=== PATIENT | male | born 1960 | race Caucasian/White ===

== ENCOUNTER → 2016-12-28 | Outpatient (CLI) | payer MEDICARE ==
[~2016-12-28] MED LIST: ALBUTEROL0.09 MG/A2 INH; ALDACTONE25 MG PO; ASPI-COR81 M1 PO; ATIVAN1 MG PO; BLOOD PRESSURE MED; COMBIVENT1 AR1 IH; D-1000 185 MG-11 TAB PO; GUAIFENESIN600 MG PO; KLOR-CON M2020 ME1 PO; LASIX20 MG PO; LEVAQUIN500 M2 PO; LEVAQUIN750 M1 PO; LIPITOR80 MG PO; LISINOPRIL10 M1 PO; LOPRESSOR25 MG PO; LOPRESSOR50 M1 PO; LORAZEPAM0.5 MG PO; NATURE'S BLEND F1 MG PO; NORCO 325 MG-101 TAB PO; OXYGEN NAS; PLAVIX75 M1 PO; PREDNICOT10 MG PO; PREDNISONE10 MG PO; PROAIR HFA8.5 GM INH; TESSALON PERLE200 MG PO
== END | disposition home or self-care (01) ==
LOC: CP 09:49
DX: J43.9 Emphysema, unspecified (principal)

== ENCOUNTER 2017-12-20 23:55 | Inpatient (IN) | payer MEDICARE ==
[~2017-12-20] VITALS: Ht 172.7 cm; Wt 64.9 kg
--- NOTE | ~2017-12-20 | PR ---
[place], [place] PROGRESS NOTE NAME: TING BARRON JR UNIT #: [id number] ROOM: 520 DOCTOR: YU RODRIGUEZ MD BIRTHDATE: [birth year] DOS: 12/23/2017 PULMONARY PROGRESS NOTE SUBJECTIVE: The patient was transferred to a telemetry floor at this time. He has been noted comfortable at this time, sitting on the side of the bed. He stated the coughing has been noted loose and nonproductive. He has not been noted any symptoms of chest pain. He denies symptoms of chest pain. Shortness of breath has been improving. He denies any pain of the lower extremities. OBJECTIVE: VITAL SIGNS: For the patient's temperature recorded shows a normal temperature, respiratory 20, heart rate of 89, blood pressure 156/86. Pulse oxygen saturation of the patient noted on 2 liters nasal cannula 98% saturation. HEENT: Examination shows head was atraumatic. Eyes nonicterus. NECK: Supple. CARDIOVASCULAR: S1, S2 audible. LUNGS: The patient was noted with moderate decreased breath sounds in the lung with [id number] expiratory wheezing, improvement in air entry note from previous examination. ABDOMEN: Soft, nontender. Bowel sounds present. EXTREMITIES: Without acute edema. LABORATORY DATA: Sodium 131. Normal BUN and creatinine. CBC: Normal WBC count and hemoglobin 12.1. IMPRESSION: 1. The patient with emphysema, which had noted in the basilar area with a bullous formation. 2. Liver cirrhosis. 3. Resolving acute respiratory failure progressively. PLAN OF TREATMENT: Continuation of the bronchodilators and oxygen supplementation. Dose of Solu-Medrol will be changed to 40 mg b.i.d. dosing because of improvement in the respiratory symptom continued. Monitor respiratory status closely. [place], [place] PROGRESS NOTE NAME: TING BARRON JR UNIT #: [id number] ROOM: 520 DOCTOR: YU RODRIGUEZ MD BIRTHDATE: [birth year] YU LINDSAY MD CM:PNTRANS [id number] YU SCHNEIDER MD 12/23/17 1215 interface
--- NOTE | ~2017-12-20 | PR ---
[place], [place] PROGRESS NOTE NAME: TING BARRON JR UNIT #: [id number] ROOM: 520 DOCTOR: SUDARSHAN FORDE,ANGELO BIRTHDATE: [birth year] DOS: 12/24/2017 REASON FOR VISIT: The patient with shortness of breath and coronary artery disease, elevated troponin. HISTORY OF PRESENT ILLNESS: The patient denies any chest pain or palpitations. His breathing is better. He is anticipating going home. Denies any cough or hemoptysis. No fever and chills. He is on oxygen by nasal cannula. REVIEW OF SYSTEMS: Review of the 8 systems negative except as mentioned. RHYTHM STRIPS: The patient is in sinus rhythm. PHYSICAL EXAMINATION: VITAL SIGNS: Blood pressure 131/61, pulse 86, respirations 20. Weight 64.8 kilos. GENERAL: Alert, comfortable, in no acute distress. HEENT: Pupils are round and equal, no jaundice. NECK: Supple, no distended neck veins. LUNGS: Clear to auscultation bilaterally. LUNGS: A few scattered rhonchi, but good air entry bilaterally. HEART: Regular rhythm, no S3. Grade 1/6 systolic murmur. ABDOMEN: Bowel sounds normal. EXTREMITIES: Showed no edema. Distal pulses palpable. SKIN: Warm and dry. No cyanosis, no clubbing. RECTAL: Deferred. MEDICATIONS AND LABORATORIES: Lab studies reviewed. IMPRESSION: 1. Borderline elevation of troponin. 2. Chronic obstructive pulmonary disease exacerbation. 3. Abnormal echo with some anteroapical wall motion abnormality. 4. History of coronary artery disease with a totally occluded right coronary artery. RECOMMENDATIONS: 1. Continue current medications. He is chest pain free and the blood pressure and heart rates are stable. 2. I discussed with the patient regarding Lexiscan stress test on Tuesday due to his abnormal troponin and some wall motion abnormality and a 2D echo has a history of coronary artery disease. 3. He would like to go home and he stated that "Dr. Prieto said I can go home and come for outpatient testing." 4. I will see him tomorrow and will decide about the stress test. [place], [place] PROGRESS NOTE NAME: BEATRICE VARGASTING Ferrer UNIT #: [id number] ROOM: 520 DOCTOR: ANGELO HEATON MD BIRTHDATE: [birth year] ANGELO HEATON MD CM:PNTRANS [id number] ANGELO HEATON MD 12/24/17 2258 interface
--- NOTE | ~2017-12-20 | PR ---
[place], [place] PROGRESS NOTE NAME: TING BARRON JR [facility] #: [id number] UNIT #: [id number] ROOM: 520 DOCTOR: SUDARSHAN FORDEANGELO BIRTHDATE: [birth year] DOS: 12/25/2017 CARDIOLOGY FOLLOWUP REASON FOR VISIT: Elevated troponin and coronary artery disease. SUBJECTIVE: The patient is feeling better. Denies any chest pain. His breathing is much better. No palpitation, no dizziness, no edema, no orthopnea. He wanted to go home today. REVIEW OF SYSTEMS: Review of the 8 systems negative except as mentioned above. RHYTHM STRIPS: The patient is in sinus rhythm. PHYSICAL EXAMINATION: VITAL SIGNS: Blood pressure 146/63, pulse 79, respiratory rate is 18. GENERAL: Alert, comfortable, in no acute distress. HEENT: Pupils are round and equal. No jaundice. NECK: Supple. No distended neck veins. No carotid bruit. CHEST: Symmetrical, nontender. LUNGS: Few scattered rhonchi. Good air entry bilaterally. HEART: Regular rhythm, no S3. Grade 1/6 systolic murmur. ABDOMEN: Benign, nontender. Bowel sounds normal. EXTREMITIES: Showed no edema. Distal pulses palpable. SKIN: Warm and dry. No cyanosis, no clubbing. NEUROLOGIC: The patient is alert and oriented. No focal neurologic deficit. RECTAL: Deferred. MEDICATIONS AND LABORATORIES: Reviewed. IMPRESSION: 1. Chronic obstructive pulmonary disease exacerbation. 2. Borderline elevation of troponin, type 2 non-ST elevation myocardial infarction. 3. Coronary artery disease. Cardiac catheterization in September 2016 showing totally occluded right coronary artery. 4. Abnormal echo with some wall motion abnormality. 5. Mild left ventricular dysfunction with ejection fraction 45%-50%. 6. Hypertension. 7. Valvular heart disease. RECOMMENDATIONS: 1. Continue current medication. 2. The patient would like to go home today and wanted to come back as outpatient for his Lexiscan stress test. 3. Chest pain free and blood pressure and heart rate are stable. 4. Continue his Plavix, beta blockers, ROSIBEL inhibitors and statins. 5. We will schedule him for outpatient Lexiscan stress test next week. 6. We will follow up with Dr. Prieto after his stress test. 7. His family is at bedside at the time of my examination. [place], [place] PROGRESS NOTE NAME: TING BARRON JR UNIT #: [id number] ROOM: [facility] [place] DOCTOR: SUDARSHAN FORDE,ANGELO BIRTHDATE: [birth year] 8. I prefer to keep him in the hospital and do stress test on Tuesday, but would like to go home today and come back as outpatient stress test. ANGELO HEATON MD CM:PNTRANS [id number] ANGELO HEATON MD 12/26/17 0039 interface
--- NOTE | ~2017-12-20 | PR ---
[place], [place] PROGRESS NOTE NAME: TING BARRON JR [facility] #: [id number] UNIT #: [id number] ROOM: 520 DOCTOR: NEFTALI SCHNEIDER MD,YU BIRTHDATE: [birth year] DOS: 12/25/2017 SUBJECTIVE: The patient has been noted comfortable at this time without any acute distress, resting comfortably at the present time. She has not been noted with symptoms of chest pain and symptoms of nausea, vomiting, and coughing has been improved. OBJECTIVE: VITAL SIGNS: For the patient which has been recorded showed normal temperature, respiratory rate 18, heart rate 79, blood pressure 146/73. The pulse oxygen saturation on 2 liters nasal cannula 95% saturation at rest. HEENT: No acute change. NECK: Supple. CARDIOVASCULAR: S1, S2 audible in the lung were noted clear. ABDOMEN: Soft and nontender. Bowel sounds present. EXTREMITIES: Without any acute edema. IMPRESSION: Progressive and gradual progressive resolution of acute hypoxic respiratory failure for the patient with exacerbation of chronic obstructive pulmonary disease was noted. Improving respiratory status of the patient. PLAN OF TREATMENT: Assess the patient for 6-minute walk test for the patient was completed. He will be discharged home on oral tapering dose of prednisone, bronchodilators, medication such as Dulera to be used as an outpatient and the home oxygen for outpatient followup to be established post-discharge in the next couple of weeks. YU LINDSAY MD CM:PNTRANS [phone] YU SCHNEIDER MD 12/25/172038 interface
--- NOTE | ~2017-12-20 | PR ---
[place], [place] PROGRESS NOTE [id number] UNIT #: [id number] ROOM: 520 DOCTOR: MARIA DEL CARMEN DONATO MD BIRTHDATE: [birth year] DOS: 12/24/2017 SUBJECTIVE: The patient was seen and examined. He is awake, alert. He tells me he feels well and would like to go home. He is on nasal cannula. Denies dysuria or hematuria. Denies nausea or vomiting. PHYSICAL EXAMINATION: VITAL SIGNS: Temperature 97.9, pulse 86, respiration 20, blood pressure 131/61. NECK: Shows no JVD. LUNGS: Diminished breath sounds. No wheeze. HEART: Normal S1, S2. No rub. ABDOMEN: Soft, nontender. There is no organomegaly. EXTREMITIES: Had no edema. LABORATORY DATA: Sodium 132, potassium 4.2, CO2 of 29, calcium 8.0, BUN 17, creatinine 0.85. Hemoglobin 12.5. IMPRESSION AND PLAN: 1. Hyponatremia. This seems to be stable and improving. Would continue to monitor labs while in the hospital. Avoid thiazide diuretics. Increase protein intake. Can use and resume loop diuretics as felt needed. 2. History of alcohol abuse. Monitor for delirium tremens. 3. Apparent non-ST elevation myocardial infarction. Continue medications. Cardiology is following the patient. MARIA DEL CARMEN DONATO MD CM:PNTRANS [id number] MARIA DEL CARMEN DONATO MD 12/24/17 1500 interface
--- NOTE | ~2017-12-20 | PR ---
[place], [place] PROGRESS NOTE NAME: TING BARRON JR [facility] #: [id number] UNIT #: [id number] ROOM: [facility] DOCTOR: NEFTALI SCHNEIDER MD,YU BIRTHDATE: [birth year] DOS: 12/22/2017 SUBJECTIVE: The patient was still noted coughing. The patient with small amount of sputum expectoration. Shortness of breath has been noted partially decreased from yesterday. No symptoms of hemoptysis and symptoms of nausea, vomiting, diarrhea, abdominal pain, ____ hematemesis, melena. General weakness and fatigue for the patient was still reported. The remaining systems were reviewed, they were noted all negative. OBJECTIVE: VITAL SIGNS: Normal temperature, respiratory rate 22, heart rate 94, blood pressure 151/79 this morning. The pulse oxygen saturation for the patient noted 3 liters 99% saturation. HEENT: Examination shows head was atraumatic. Eyes nonicterus. NECK: Supple. CARDIOVASCULAR: S1, S2 is audible. LUNGS: The patient was noted without any crackles. Expiratory wheezing noted in the lungs bilaterally. ABDOMEN: Flat, soft, and nontender. EXTREMITIES: Without any edema. MUSCULOSKELETAL: Without any deformities. SKIN: Noted without any lesions or rashes. CENTRAL NERVOUS SYSTEM: Cranial nerves 2-12 intact. LABORATORY DATA: CT scan of the chest, which was done for the patient yesterday was personally reviewed, shows evidence of panlobular emphysema of the lung noted throughout the lungs, but much more predominant in the upper two-thirds of the lungs. There were no abnormal pulmonary nodules. There was no pulmonary infiltration noted. Limited exam of the patient's mediastinal structure because of the lack of the IV contrast. However, there was no cross lymphadenopathy was suspected. IMPRESSION: 1. The patient has severe advanced panlobular emphysema of the patient noted with acute exacerbation of chronic obstructive pulmonary disease. 2. The patient with history of nicotine dependence as well. 3. History of liver cirrhosis as well. 4. The patient with leukopenia. 5. Peripheral vascular disease. 6. Rule out alpha 1 antitrypsin deficiency. PLAN OF MANAGEMENT: Continuation of the current therapy plan of management with BiPAP, oxygen supplementation, nicotine replacement patches, and current dose of corticosteroids. Bronchodilators. The patient is also noted atrial fibrillation, currently noted therapeutic anticoagulation with Lovenox. Alpha 1 antitrypsin deficiency to be excluded as an outpatient. Assessment of the patient because of current panlobular emphysema and cirrhosis of the liver. Absolute abstinence of tobacco use for the patient will be recommended. [place], [place] PROGRESS NOTE NAME: TING BARRON JR UNIT #: [id number] ROOM: [facility] DOCTOR: NEFTALI SCHNEIDER MD,YU BIRTHDATE: [birth year] YU LINDSAY MD CM:SIMEON 1155 1337 YU SCHNEIDER MD 12/22/17 1336 interface
--- NOTE | ~2017-12-20 | PR ---
[place], [place] PROGRESS NOTE NAME: TING BARRON JR [facility] #: [id number] UNIT #: [id number] ROOM: 520 DOCTOR: NEFTALI SCHNEIDER MD,YU BIRTHDATE: [birth year] DOS: 12/24/2017 SUBJECTIVE: He has been noted continued reduction of the respiratory symptom, reduction in the cough and sputum expectoration, shortness of breath, wheezing and in general feeling better. Denies symptoms of chest pain or hemoptysis, using oxygen supplementation nasal cannula. OBJECTIVE: VITAL SIGNS: Normal temperature, respiratory rate 18, heart rate 74, blood pressure 129/85, pulse oxygen saturation on room air 92% saturation with BiPAP as 95% saturation. HEENT: Showed no acute change. NECK: Supple. CARDIOVASCULAR: S1, S2 audible. LUNGS: Noted moderate decreased breath sounds with mild expiratory wheezing. No crackles. ABDOMEN: Soft, nontender. EXTREMITIES: Without acute edema. LABORATORY DATA: CBC: Normal WBC count and platelet count, hemoglobin of 12.5. BMP: Normal BUN and creatinine. Sodium 132. IMPRESSION: Resolving acute exacerbation of chronic obstructive pulmonary disease, acute tracheobronchitis, and respiratory failure progressively and gradually. PLAN OF TREATMENT: Ambulation was encouraged with the use of the oxygen. Possible discharge home could be considered for the morning. YU LINDSAY MD CM:PNTRANS [phone] YU SCHNEIDER MD 12/24/17 1439 interface
--- NOTE | ~2017-12-20 | CON ---
[place], [place] REPORT OF CONSULTATION NAME: TING BARRON JR [facility] #: [id number] UNIT #: [id number] ROOM: [facility] DOCTOR: YU RODRIGUEZ MD BIRTHDATE: [birth year] DOS: 12/21/2017 REASON FOR CONSULTATION: To assess the patient for ongoing acute respiratory symptom. HISTORY OF PRESENT ILLNESS: This is a 57-year-old white male patient who has been noted with symptoms of increasing shortness of breath over a week, but the symptoms worsened significantly last night. The patient came into the Emergency Room, where he had been admitted and currently treated in Intensive Care Unit for his management of tachypnea with respiratory failure. The patient was brought to the hospital by the EMS. The patient was noted to have severe hypoxia and tachypnea. He was started on BiPAP en route. The oxygen supplementation the patient was given. Pulse oxygen saturation noted in the 90s. He had been currently admitted to Intensive Care Unit for further medical management. Shortness of breath was still noted mildly at rest with the patient, but decreased overall intensity as per the patient. He does have symptoms of coughing, which was described to be nonproductive. Denies symptoms of chest tightness and congestion. The patient denies any symptoms of wheezing. He denies any symptoms of any sputum expectoration. The coughing has been described mostly nonproductive. Denies symptoms of postnasal drainage. REVIEW OF SYSTEMS: CONSTITUTIONAL: Fatigue and tiredness reported without symptoms of fever or chills. EYES: Denies any burning, redness, or tenderness. EARS, NOSE, THROAT SYMPTOMS: Denies sore throat, hoarseness, otalgia, postnasal drainage or epistaxis. CARDIOVASCULAR: Denies anginal pain, edema, pain in the lower extremities. GASTROINTESTINAL: No dysphagia, nausea, vomiting, diarrhea, abdominal pain, hematemesis, melena, or hematochezia. SKIN: Denies abnormal lesions or rashes. MUSCULOSKELETAL: The patient was noted without any acute deformities. SKIN: Denies any pain in the joints. CENTRAL NERVOUS SYSTEM: General weakness. Denies symptoms of dizziness, headache, diplopia, syncopal episode, tingling sensation of the extremities. Remaining systems were reviewed of the patient, they were noted all negative. PAST MEDICAL HISTORY: Noted for this patient are: 1. Past acute respiratory failure requiring intubation and mechanical ventilation in 2016. 2. Centrilobular emphysema. 3. Cirrhosis of the liver. 4. Intervertebral disk disease. 5. Coronary artery disease. 6. Peripheral vascular disease. 7. Vitamin D deficiency. 8. Anxiety disorder. 9. Hypercholesterolemia. 10. Congestive heart failure, systolic and diastolic, combined. [place], [place] REPORT OF CONSULTATION NAME: TING BARRON JR UNIT #: [id number] ROOM: [facility] DOCTOR: YU RODRIGUEZ MD BIRTHDATE: [birth year] PAST SURGICAL HISTORY: 1. Intubation on mechanical ventilation. 2. Peripheral artery intervention. The patient with angioplasty of left lower leg. 3. History of past thoracentesis. SOCIAL HISTORY: The patient stated that he is , has one child, lives at home. Tobacco use was noted chronic with the patient since early teens and continued to smoke a pack of cigarettes per day. Denies history of alcohol use. Denies any alcohol or illicit drug use. FAMILY HISTORY: The patient's father from complication of stroke and also noted history of COPD. Mother is living, 70 years old without any known medical illnesses. HOME MEDICATIONS: Listed as use of ProAir HFA inhaler, aspirin, Lipitor, vitamin D, Plavix, folic acid, Lasix, Mucinex, recent prescription of Levaquin, lisinopril, lorazepam, metoprolol, potassium chloride, and tapering prednisone. DRUG ALLERGY HISTORY: The patient reported no known drug allergies. PHYSICAL EXAMINATION: GENERAL: A 57-year-old white male who has been currently sitting on his bed. The patient without any severe distress; however, mild tachypnea noted at rest. Height of 5 feet 8 inches, weight of 143 pounds, BMI 21.7. VITAL SIGNS: Temperature 100.1 degree Fahrenheit to normal temperature, respiratory rate 14-16, heart rate of 112-104, sinus tachycardia, blood pressure 104/69-142/80. Pulse oxygen saturation of the patient recorded on 4 liter nasal cannula this morning as 96% and BiPAP earlier 50% with 100% saturation of oxygen. HEENT: Examination shows head was atraumatic. Eyes nonicterus. NECK: Supple. CARDIOVASCULAR: S1, S2 is audible. LUNGS: The patient was noted without any crackles at this time. Severe reduced breath sound, diffuse expiratory wheezing. Air entry was noted moderately decreased. ABDOMEN: Soft, nontender. Bowel sounds present. EXTREMITIES: The patient noted without any acute edema, clubbing, or cyanosis. MUSCULOSKELETAL: No acute deformities. SKIN: No lesions or rashes. CENTRAL NERVOUS SYSTEM: The patient's cranial nerves 2-12 intact. No focal deficit. LABORATORY DATA: The patient's CBC were done early this morning. The patient on admission has normal CBC. Lactic acid 3.4, follow up 1.0 today. The PT and PTT this morning normal. CMP this morning, glucose 122, potassium 5.5, sodium 121. Arterial blood gas this morning, pH of 7.40, pCO2 of 32, pO2 of 138 on 40% oxygen. CMP this morning, glucose 153, BUN normal, creatinine was normal. Potassium 5.4, sodium of 123. CBC this morning repeated again, WBC count 4.3, [place], [place] REPORT OF CONSULTATION NAME: TING BARRON JR UNIT #: [id number] ROOM: [facility] DOCTOR: NEFTALI SCHNEIDER MD,[facility] BIRTHDATE: [birth year] hemoglobin 13.4, hematocrit of 39.2, platelet count was normal. Ultrasound of the liver for the patient was completed this morning. The liver cirrhosis the patient noted as previously identified. The gallbladder was not visualized. Troponin, the first set 0.274, the second set is 0.388. One view chest x-ray that was done at this admission for this patient was reviewed from the Emergency Room, PACS images. Change of advanced emphysema for the patient were visible with a small basilar area of atelectasis or infiltration cannot be excluded with associated small pleural effusions. IMPRESSION: 1. The patient has been currently admitted to the hospital noted with severe acute exacerbation of chronic obstructive pulmonary disease with history of chronic hypoxic respiratory failure, currently noted with respiratory insufficiency because of the current acute exacerbation. 2. Leukopenia for the patient related to the liver cirrhosis infections and others to be explored. 3. Severe hyponatremia, etiology undetermined with hyperkalemia. Rule out adrenal insufficiency. 4. The patient with history of chronic nicotine dependence as well. 5. Past history of intubation, mechanical ventilation. 6. Possibility of protein-calorie malnutrition as well. 7. History of peripheral vascular disease. PLAN OF MANAGEMENT: Continue the BiPAP of the patient with respiratory distress. Bronchodilator will be given every 4 hours. Continue Solu-Medrol current dose 40 mg 8 hours. Levaquin will be continued. The basilar area of atelectasis or infiltration at this time with possible pneumonia will be treated with antibiotic. Ordered the sputum for Gram stain, culture, and BiPAP, the patient could use that previously as ordered intermittently for any respiratory distress, especially at nighttime. The other time, use the oxygen supplementation, maintain saturation of oxygen 92% or greater. Abstinence from tobacco use was recommended. Nicotine replacement patches. Ordering the prealbumin level as well. Also ordered the sputum for Gram stain and culture as well. Addition of the Mucinex 1200 mg b.i.d. for the patient as well. PA lateral chest x-ray for the patient will be done in the morning for this patient to assess the basilar abnormalities. The patient has already been assessed with Nephrology Service for the assessment and management of the hypokalemia. Other plan of therapy, usual medical management, other therapy, plan of care, respiratory viral panel will be ordered. [place], [place] REPORT OF CONSULTATION NAME: BEATRICE VARGASTING UNIT #: [id number] ROOM: [facility] DOCTOR: YU RODRIGUEZ MD BIRTHDATE: [birth year] YU LINDSAY MD CM:CONSTR:REPORT OF CONSULTATION 1309 12/22/17 0124 interface
--- NOTE | ~2017-12-20 | PR ---
[place], [place] PROGRESS NOTE NAME: TING BARRON JR [facility] #: [id number] UNIT #: [id number] ROOM: 520 DOCTOR: MARIA DEL CARMEN DONATO MD BIRTHDATE: [birth year] DOS: 12/25/2017 SUBJECTIVE: The patient was seen and examined. He is awake and alert. He states he is feeling better. Denies nausea, vomiting, fevers or chills. He tells me he is going home. PHYSICAL EXAMINATION: VITAL SIGNS: Temperature 98.4, pulse 87, respiratory rate 20, blood pressure ____. HEENT: Shows no JVD. LUNGS: Diminished breath sounds. HEART: Normal S1, S2. No rub, thrill or gallop. ABDOMEN: Soft, nontender. There is no organomegaly. EXTREMITIES: Had trace edema. SKIN: Showed no rash. LABORATORY DATA: From December 24: Sodium 132, potassium 4.2, BUN 17, creatinine 0.85. ASSESSMENT AND PLAN: 1. Hyponatremia. This is stable and overall improving. Continue to monitor labs while in the hospital. Avoid thiazide diuretics. Increase protein intake. Resume loop diuretics. 2. History of alcohol abuse. Monitor for delirium tremens. 3. Apparent non-ST elevation myocardial infarction. Cardiology is managing. Continue medications. 4. From renal standpoint, the patient is acceptable for discharge. He should have labs checked as an outpatient to reevaluate his sodium. Thank you for this consultation. We will follow with you. MARIA DEL CARMEN DONATO MD CM:PNTRANS 1357 [id number] MARIA DEL CARMEN DONATO MD 12/25/17 1834 interface
[2017-12-21] VITALS (9 sets, daily range): BP systolic 118–148; BP diastolic 64–94
[2017-12-21 00:38] LABS: BASO % 0.3 % (0.0-1.0); EOS # 0.1 10*3/uL (0.0-0.4); EOS % 0.7 % (1.0-4.0); HEMATOCRIT 42.5 % (42.0-52.0); HEMOGLOBIN 14.4 g/dl (14.0-18.0); LYMPH % 10.3 % (27.0-41.0); MEAN CELL VOLUME 95.1 fl (80.0-94.0); MEAN CORPUSCULAR HGB 32.2 pg (27.0-31.0); MEAN CORPUSCULAR HGB CONC 33.9 g/dl (33.0-37.0); MEAN PLATELET VOLUME 9.8 fl (9.6-12.3); MONO # 1.1 10*3/uL (0.1-1.0); MONO % 11.7 % (3.0-9.0); NEUT % 76.2 % (47.0-73.0); PLATELET COUNT AUTOMATED 146 10*3/uL (130-400); RED BLOOD COUNT 4.47 10*6/uL (4.50-5.90); RED CELL DISTRI WIDTH 12.6 % (0-14.5); WHITE BLOOD COUNT 9.2 10*3/uL (4.8-10.8)
[2017-12-21 00:49] LABS: ACT PARTIAL THROMBO TIME 24.7 SECONDS (20.8-31.5); INTERNATIONAL NORM RATIO 0.9 (2.0-3.5)
[2017-12-21 00:54] LABS: ALBUMIN 3.5 gm/dl (3.1-4.5); ALKALINE PHOSPHATASE 123 U/L (45-117); BUN 14 mg/dl (7-24); CHLORIDE 84 mmol/L (98-107); CREATININE 1.05 mg/dL (0.70-1.30); POTASSIUM 5.5 mmol/L (3.5-5.1); SGOT/AST 20 IU/L (3-35); SGPT/ALT 26 U/L (12-78); SODIUM 121 mmol/L (136-145); TOTAL PROTEIN 7.8 gm/dL (6.4-8.2); TROPONIN I < 0.015 ng/ml (<0.045)
[2017-12-21] MEDS ORDERED: ALDACTONE25 M1 PO (02:16)
[2017-12-21] MEDS ORDERED: SPIRIVA18 MCG PO (02:17)
[2017-12-21] MEDS ORDERED: SYMB160 INH (02:17)
[2017-12-21 07:34] LABS: HEMATOCRIT 39.2 % (42.0-52.0); HEMOGLOBIN 13.4 g/dl (14.0-18.0); MEAN CORPUSCULAR HGB CONC 34.2 g/dl (33.0-37.0)
[2017-12-21 07:50] LABS: ABG BASE EXCESS -3.3 mmol/L (-2.0-2.0); ABG HCO3 20.1 mmol/l (22-26); ARTERIAL BLOOD GAS PCO2 32.6 mmHg (35-45); ARTERIAL BLOOD GAS PH 7.406 (7.35-7.45)
[2017-12-21 07:53] LABS: ALKALINE PHOSPHATASE 101 U/L (45-117); BUN 13 mg/dl (7-24); CHLORIDE 89 mmol/L (98-107); CHOLESTEROL 161 mg/dL (<200); CREATININE 0.99 mg/dL (0.70-1.30); HDL CHOLESTEROL 55 mg/dl (40-60); LDL CHOLESTEROL 98 mg/dL (9-159); PHOSPHOROUS 2.9 mg/dL (2.5-4.9); POTASSIUM 5.4 mmol/L (3.5-5.1); SGOT/AST 15 IU/L (3-35); SGPT/ALT 22 U/L (12-78); SODIUM 123 mmol/L (136-145); TOTAL PROTEIN 6.6 gm/dL (6.4-8.2); TRIGLYCERIDES 38 mg/dl (<150); VLDL CHOLESTEROL 8 mg/dL (6-40)
[2017-12-21 08:05] LABS: FREE T4 1.02 ng/dl (0.76-1.46); THYROID STIM HORMONE (HS) 0.623 uIU/ml (0.358-4.75)
[2017-12-21 08:13] LABS: BASO % 0.2 % (0.0-1.0); LYMPH # 0.2 10*3/uL (1.3-4.4); LYMPH % 5.6 % (27.0-41.0); MEAN CELL VOLUME 95.1 fl (80.0-94.0); MEAN CORPUSCULAR HGB 32.5 pg (27.0-31.0); MONO # 0.1 10*3/uL (0.1-1.0); MONO % 2.6 % (3.0-9.0); NEUT # 3.9 10*3/uL (2.3-7.9); NEUT % 90.9 % (47.0-73.0); PLATELET COUNT AUTOMATED 131 10*3/uL (130-400); RED BLOOD COUNT 4.12 10*6/uL (4.50-5.90); RED CELL DISTRI WIDTH 12.7 % (0-14.5); WHITE BLOOD COUNT 4.3 10*3/uL (4.8-10.8)
[2017-12-21 08:14] LABS: PLATELET SUFFICIENCY NORMAL (NORMAL); TOTAL CELLS COUNTED 100 #CELLS
[2017-12-21 08:23] LABS: URINE CHLORIDE, RANDOM < 10 mmol/L
[2017-12-21 08:53] LABS: BILIRUBIN NEGATIVE (NEGATIVE); BLOOD TRACE-INTACT (NEGATIVE); CLARITY CLEAR (CLEAR); COLOR YELLOW (YELLOW); GLUCOSE NEGATIVE (NEGATIVE); KETONE TRACE (NEGATIVE); LEUKO ESTERASE NEGATIVE (NEGATIVE); NITRITE NEGATIVE (NEGATIVE); SPECIFIC GRAVITY <= 1.005 (1.005-1.030); UROBILINOGEN 0.2 E.U./dl (0.2-1.0)
[2017-12-21 09:06] LABS: BACTERIA TRACE; EPITHELIAL CELLS 0-2; WBC 0-2 wbc/hpf (0-5)
[2017-12-21 09:13] LABS: VITAMIN D, 25-HYDROXY 14.3 ng/mL (30-100)
[2017-12-21] MEDS ORDERED: POTASSIUM CHLO10 ME5 PO (09:33)
[2017-12-21] MEDS ORDERED: METOPROLOL SUCC50 M1 PO (09:35)
[2017-12-22] VITALS: BP 118/65
[2017-12-22 04:00] VITALS: BP 128/66
[2017-12-22 05:11] LABS: BASO % 0.1 % (0.0-1.0); EOS % 0.4 % (1.0-4.0); HEMATOCRIT 34.7 % (42.0-52.0); HEMOGLOBIN 11.9 g/dl (14.0-18.0); LYMPH # 0.5 10*3/uL (1.3-4.4); LYMPH % 6.6 % (27.0-41.0); MEAN CELL VOLUME 96.1 fl (80.0-94.0); MEAN CORPUSCULAR HGB CONC 34.3 g/dl (33.0-37.0); MEAN PLATELET VOLUME 9.9 fl (9.6-12.3); MONO # 0.4 10*3/uL (0.1-1.0); MONO % 4.6 % (3.0-9.0); NEUT % 87.1 % (47.0-73.0); PLATELET COUNT AUTOMATED 126 10*3/uL (130-400); RED BLOOD COUNT 3.61 10*6/uL (4.50-5.90); RED CELL DISTRI WIDTH 12.7 % (0-14.5); WHITE BLOOD COUNT 8.1 10*3/uL (4.8-10.8)
[2017-12-22 05:28] LABS: ALBUMIN 2.8 gm/dl (3.1-4.5); BUN 13 mg/dl (7-24)
[2017-12-22 05:36] LABS: CHLORIDE 97 mmol/L (98-107); POTASSIUM 4.6 mmol/L (3.5-5.1); SODIUM 131 mmol/L (136-145)
[2017-12-22 05:39] LABS: PHOSPHOROUS 2.9 mg/dL (2.5-4.9)
[2017-12-22 05:42] LABS: PREALBUMIN 15 mg/dl (20-40)
[2017-12-22 08:00] VITALS: BP 151/79
[2017-12-22 12:00] VITALS: BP 140/74
[2017-12-22 16:00] VITALS: BP 134/62
[2017-12-22 20:00] VITALS: BP 142/76
[2017-12-23] VITALS: BP 149/69
[2017-12-23 06:45] LABS: EOS % 0.4 % (1.0-4.0); HEMATOCRIT 36.3 % (42.0-52.0); HEMOGLOBIN 12.1 g/dl (14.0-18.0); LYMPH # 0.4 10*3/uL (1.3-4.4); LYMPH % 7.2 % (27.0-41.0); MEAN CELL VOLUME 97.8 fl (80.0-94.0); MEAN CORPUSCULAR HGB 32.6 pg (27.0-31.0); MEAN CORPUSCULAR HGB CONC 33.3 g/dl (33.0-37.0); MEAN PLATELET VOLUME 10.1 fl (9.6-12.3); MONO # 0.2 10*3/uL (0.1-1.0); MONO % 4.5 % (3.0-9.0); NEUT # 4.3 10*3/uL (2.3-7.9); NEUT % 87.3 % (47.0-73.0); PLATELET COUNT AUTOMATED 130 10*3/uL (130-400); RED BLOOD COUNT 3.71 10*6/uL (4.50-5.90); RED CELL DISTRI WIDTH 12.6 % (0-14.5); WHITE BLOOD COUNT 4.9 10*3/uL (4.8-10.8)
[2017-12-23 07:00] LABS: ALBUMIN 2.8 gm/dl (3.1-4.5); BUN 14 mg/dl (7-24); CHLORIDE 97 mmol/L (98-107); CREATININE 0.85 mg/dL (0.70-1.30); PHOSPHOROUS 3.6 mg/dL (2.5-4.9); POTASSIUM 4.4 mmol/L (3.5-5.1); SODIUM 131 mmol/L (136-145)
[2017-12-23 08:00] VITALS: BP 156/86
[2017-12-23 12:00] VITALS: BP 131/67
[2017-12-23 16:00] VITALS: BP 134/76
[2017-12-23 20:00] VITALS: BP 128/63
[2017-12-24] VITALS: BP 136/78
[2017-12-24 00:04] LABS: ADENOVIRUS Negative (Negative); INFLUENZA A Negative (Negative); INFLUENZA B Negative (Negative); METAPNEUMOVIRUS Negative (Negative); PARAINFLUENZA 1 Negative (Negative); PARAINFLUENZA 2 Negative (Negative); PARAINFLUENZA 3 Negative (Negative); RHINOVIRUS Negative (Negative); RSV A Negative (Negative); RSV B Negative (Negative)
[2017-12-24 06:56] LABS: EOS % 0.6 % (1.0-4.0); HEMOGLOBIN 12.5 g/dl (14.0-18.0); LYMPH # 0.5 10*3/uL (1.3-4.4); LYMPH % 10.7 % (27.0-41.0); MEAN CORPUSCULAR HGB 32.6 pg (27.0-31.0); MEAN CORPUSCULAR HGB CONC 32.9 g/dl (33.0-37.0); MEAN PLATELET VOLUME 9.9 fl (9.6-12.3); MONO # 0.4 10*3/uL (0.1-1.0); MONO % 8.5 % (3.0-9.0); NEUT % 79.8 % (47.0-73.0); PLATELET COUNT AUTOMATED 137 10*3/uL (130-400); RED BLOOD COUNT 3.84 10*6/uL (4.50-5.90); RED CELL DISTRI WIDTH 12.7 % (0-14.5)
[2017-12-24 07:04] LABS: BUN 17 mg/dl (7-24); CHLORIDE 98 mmol/L (98-107); CREATININE 0.85 mg/dL (0.70-1.30); POTASSIUM 4.2 mmol/L (3.5-5.1); SODIUM 132 mmol/L (136-145)
[2017-12-24 08:00] VITALS: BP 129/85
[2017-12-24 12:00] VITALS: BP 131/61
[2017-12-24 16:00] VITALS: BP 148/70
[2017-12-24 20:00] VITALS: BP 127/63
[2017-12-25] VITALS: BP 124/74
[2017-12-25 08:00] VITALS: BP 146/63
[2017-12-25 12:00] VITALS: BP 166/76
[2017-12-25 16:00] VITALS: BP 142/82
[2017-12-25] MEDS ORDERED: ATORVASTATIN CA80 M1 PO (16:26)
[2017-12-25] MEDS ORDERED: LEVAQUIN500 M2 PO (16:26)
[2017-12-25] MEDS ORDERED: MUCINEX ER600 MG PO (16:26)
[2017-12-25] MEDS ORDERED: PREDNISONE10 MG PO (16:27)
== END 2017-12-25 17:28 | disposition home or self-care (01) | DRG 871 ==
LOC: ED 23:55 → ICCU 12-21 01:11 → EDHOLD 12-21 01:11 → ICCU 12-21 01:15 → 5E 12-22 14:18
PROVIDERS: Family Medicine; Internal Medicine; Internal Medicine Critical Care Medicine; Internal Medicine Hospice and Palliative Medicine; Student in an Organized Health Care Education/Training Program
PROC: 5A09357 Assistance with Respiratory Ventilation, Less than 24 Consecutive Hours, Continuous Positive Airway Pressure (ICD-10-PCS; principal; 2017-12-21)
PROC: 5A09357 Assistance with Respiratory Ventilation, Less than 24 Consecutive Hours, Continuous Positive Airway Pressure (ICD-10-PCS; 2017-12-22)
PROC: 5A09357 Assistance with Respiratory Ventilation, Less than 24 Consecutive Hours, Continuous Positive Airway Pressure (ICD-10-PCS; 2017-12-23)
PROC: 5A09357 Assistance with Respiratory Ventilation, Less than 24 Consecutive Hours, Continuous Positive Airway Pressure (ICD-10-PCS; 2017-12-24)
DX: A41.9 Sepsis, unspecified organism (principal); J18.9 Pneumonia, unspecified organism; I21.A1 Myocardial infarction type 2; J96.21 Acute and chronic respiratory failure with hypoxia; E87.2 Acidosis; I50.42 Chronic combined systolic (congestive) and diastolic (congestive) heart failure; E87.8 Other disorders of electrolyte and fluid balance, not elsewhere classified; E87.1 Hypo-osmolality and hyponatremia; J44.1 Chronic obstructive pulmonary disease with (acute) exacerbation; J44.0 Chronic obstructive pulmonary disease with (acute) lower respiratory infection; I73.9 Peripheral vascular disease, unspecified; F10.10 Alcohol abuse, uncomplicated; E87.5 Hyperkalemia; E83.41 Hypermagnesemia; I25.10 Atherosclerotic heart disease of native coronary artery without angina pectoris; R65.20 Severe sepsis without septic shock; D53.9 Nutritional anemia, unspecified; R73.9 Hyperglycemia, unspecified; R74.8 Abnormal levels of other serum enzymes; R73.03 Prediabetes; E78.00 Pure hypercholesterolemia, unspecified; F41.1 Generalized anxiety disorder; F17.210 Nicotine dependence, cigarettes, uncomplicated; K70.30 Alcoholic cirrhosis of liver without ascites; J20.9 Acute bronchitis, unspecified; Z87.19 Personal history of other diseases of the digestive system; Z87.898 Personal history of other specified conditions; Z98.62 Peripheral vascular angioplasty status; Z99.81 Dependence on supplemental oxygen; Z79.899 Other long term (current) drug therapy; I25.2 Old myocardial infarction; Z82.3 Family history of stroke; Z83.6 Family history of other diseases of the respiratory system; Z71.6 Tobacco abuse counseling; Z79.82 Long term (current) use of aspirin

== ENCOUNTER → 2017-12-28 | Outpatient (CLI) | payer MEDICARE ==
[~2017-12-28] MED LIST changes: +ALDACTONE25 M1 PO; +ATORVASTATIN CA80 M1 PO; +METOPROLOL SUCC50 M1 PO; +MUCINEX ER600 MG PO; +POTASSIUM CHLO10 ME5 PO; +SPIRIVA18 MCG PO; +SYMB160 INH
--- NOTE | ~2017-12-28 | ST ---
[place], [place] EXERCISE STRESS TEST REPORT NAME: TING BARRON JR [facility] #: [id number] UNIT #: [id number] ROOM: DOCTOR: NADIA TRINIDAD MD BIRTHDATE: [birth year] DOS: 12/28/2017 INDICATIONS: Dyspnea, EKG abnormalities. PROCEDURE: The patient was given a rapid infusion of regadenoson 0.4 mg intravenously followed by a saline flush. He experienced a dramatic increase in his dyspnea, which lasted several seconds and then resolved. He did not have any associated chest pain. The resting electrocardiogram showed a symmetric T-wave inversions across the precordium. With the infusion, the heart rate increased naturally but no new ST or T-wave changes were seen and the patient did not experience chest pain. 40 seconds after the infusion of regadenoson, he was given radionuclide intravenously. IMPRESSION: 1. Well tolerated infusion of regadenoson. 2. Radionuclide administered. Please see the separate imaging reports for further details of the patient's myocardial stress test results. NADIA TRINIDAD MD CM:STRESS:EXERCISE STRESS TEST REPORT [id number] NADIA TRINIDAD MD
== END | disposition home or self-care (01) ==
LOC: CARD 12-27 09:00
DX: R07.2 Precordial pain (principal); R53.81 Other malaise; R06.00 Dyspnea, unspecified; R06.02 Shortness of breath; R94.31 Abnormal electrocardiogram [ECG] [EKG]

== ENCOUNTER → 2019-01-02 | Outpatient (CLI) | payer MEDICARE ==
[~2019-01-02] MED LIST changes: +DOXYCYCLINE100 M3 PO; +VITAMIN D-32000 UNI1 PO
== END | disposition home or self-care (01) ==
LOC: US 12-29 11:01
DX: I77.1 Stricture of artery (principal); R91.1 Solitary pulmonary nodule; I11.0 Hypertensive heart disease with heart failure; I50.9 Heart failure, unspecified; I73.9 Peripheral vascular disease, unspecified; R06.02 Shortness of breath; I70.0 Atherosclerosis of aorta; J43.9 Emphysema, unspecified; M79.604 Pain in right leg; M79.605 Pain in left leg

== ENCOUNTER 2019-11-04 19:24 | Inpatient (IN) | payer MEDICARE ==
[~2019-11-04] VITALS: Ht 172.7 cm; Wt 64.0 kg
[2019-11-04 19:28] VITALS: BP 135/69
[2019-11-04 20:06] VITALS: BP 95/61
[2019-11-04 20:11] LABS: HEMATOCRIT 40.3 % (42.0-52.0); HEMOGLOBIN 13.8 g/dl (14.0-18.0); MEAN CELL VOLUME 94.4 fl (80.0-94.0); MEAN CORPUSCULAR HGB 32.3 pg (27.0-31.0); MEAN CORPUSCULAR HGB CONC 34.2 g/dl (33.0-37.0); MEAN PLATELET VOLUME 9.3 fl (9.6-12.3); PLATELET COUNT AUTOMATED 236 10*3/uL (130-400); RED BLOOD COUNT 4.27 10*6/uL (4.50-5.90); RED CELL DISTRI WIDTH 12.4 % (0-14.5); WHITE BLOOD COUNT 23.4 10*3/uL (4.8-10.8)
[2019-11-04 20:25] LABS: ACT PARTIAL THROMBO TIME 25.6 SECONDS (20.0-32.1)
[2019-11-04 20:32] LABS: ALBUMIN 3.1 gm/dl (3.1-4.5); ALKALINE PHOSPHATASE 122 U/L (45-117); BUN 15 mg/dl (7-24); CHLORIDE 84 mmol/L (98-107); SGOT/AST 29 IU/L (3-35); SGPT/ALT 32 U/L (12-78); TOTAL PROTEIN 7.5 gm/dL (6.4-8.2)
[2019-11-04 20:39] LABS: TROPONIN I < 0.015 ng/ml (<0.045)
[2019-11-04 20:40] LABS: SODIUM 115 mmol/L (136-145)
[2019-11-04 20:48] VITALS: BP 80/50
[2019-11-04 20:51] VITALS: BP 83/53
[2019-11-04 20:59] LABS: TOTAL CELLS COUNTED 100 #CELLS
[2019-11-04 21:00] LABS: PLATELET SUFFICIENCY NORMAL (NORMAL)
[2019-11-04 21:03] VITALS: BP 70/46
[2019-11-05] VITALS (81 sets, daily range): BP systolic 71–1122; BP diastolic 44–88
[2019-11-05 01:05] LABS: ABG BASE EXCESS -5.5 mmol/L (-2.0-2.0); ARTERIAL BLOOD GAS PH 7.263 (7.35-7.45)
[2019-11-05 02:15] LABS: CREATININE 1.47 mg/dL (0.70-1.30); POTASSIUM 5.5 mmol/L (3.5-5.1)
[2019-11-05 06:00] LABS: HEMATOCRIT 32.2 % (42.0-52.0); MEAN CELL VOLUME 92.8 fl (80.0-94.0); MEAN CORPUSCULAR HGB 31.7 pg (27.0-31.0); MEAN CORPUSCULAR HGB CONC 34.2 g/dl (33.0-37.0); MEAN PLATELET VOLUME 9.5 fl (9.6-12.3); PLATELET COUNT AUTOMATED 188 10*3/uL (130-400); RED BLOOD COUNT 3.47 10*6/uL (4.50-5.90); RED CELL DISTRI WIDTH 12.6 % (0-14.5)
[2019-11-05 06:07] LABS: ARTERIAL BLOOD GAS PH 7.273 (7.35-7.45)
[2019-11-05 06:08] LABS: ABG BASE EXCESS -6.5 mmol/L (-2.0-2.0)
[2019-11-05 06:17] LABS: ALBUMIN 2.3 gm/dl (3.1-4.5); ALKALINE PHOSPHATASE 89 U/L (45-117); BUN 16 mg/dl (7-24); CHLORIDE 92 mmol/L (98-107); CREATININE 1.38 mg/dL (0.70-1.30); PHOSPHOROUS 3.4 mg/dL (2.5-4.9); POTASSIUM 5.1 mmol/L (3.5-5.1); SGOT/AST 21 IU/L (3-35); SGPT/ALT 25 U/L (12-78); SODIUM 121 mmol/L (136-145); TOTAL PROTEIN 5.7 gm/dL (6.4-8.2)
[2019-11-05 06:23] LABS: URINE CHLORIDE, RANDOM < 10 mmol/L
[2019-11-05 07:10] LABS: BASOPHILS 1 % (0-1); PLATELET SUFFICIENCY NORMAL (NORMAL); TOTAL CELLS COUNTED 100 #CELLS; TOXIC GRANULATION SLIGHT
[2019-11-05 13:35] LABS: ARTERIAL BLOOD GAS PH 7.319 (7.35-7.45)
[2019-11-05 13:37] LABS: ABG BASE EXCESS -5.7 mmol/L (-2.0-2.0)
[2019-11-05 21:27] LABS: BUN 12 mg/dl (7-24); CHLORIDE 101 mmol/L (98-107); CREATININE 1.06 mg/dL (0.70-1.30); SODIUM 130 mmol/L (136-145)
[2019-11-05 21:28] LABS: POTASSIUM 3.9 mmol/L (3.5-5.1)
[2019-11-06] VITALS (97 sets, daily range): BP systolic 88–146; BP diastolic 32–86
[2019-11-06 01:55] LABS: BUN 12 mg/dl (7-24); CHLORIDE 102 mmol/L (98-107); CREATININE 0.99 mg/dL (0.70-1.30); POTASSIUM 3.7 mmol/L (3.5-5.1); SODIUM 132 mmol/L (136-145)
[2019-11-06 06:36] LABS: ARTERIAL BLOOD GAS PH 7.337 (7.35-7.45)
[2019-11-06 06:37] LABS: ABG BASE EXCESS -5.8 mmol/L (-2.0-2.0)
[2019-11-06 07:42] LABS: ALBUMIN 2.1 gm/dl (3.1-4.5); ALKALINE PHOSPHATASE 90 U/L (45-117); BUN 11 mg/dl (7-24); CHLORIDE 101 mmol/L (98-107); CREATININE 0.94 mg/dL (0.70-1.30); PHOSPHOROUS 2.1 mg/dL (2.5-4.9); SGOT/AST 28 IU/L (3-35); SGPT/ALT 21 U/L (12-78); SODIUM 132 mmol/L (136-145); TOTAL PROTEIN 5.7 gm/dL (6.4-8.2)
[2019-11-06 07:46] LABS: POTASSIUM 4.6 mmol/L (3.5-5.1)
[2019-11-06 09:07] LABS: HEMATOCRIT 30.7 % (42.0-52.0); HEMOGLOBIN 10.1 g/dl (14.0-18.0); MEAN CORPUSCULAR HGB 32.9 pg (27.0-31.0); MEAN CORPUSCULAR HGB CONC 32.9 g/dl (33.0-37.0); MEAN PLATELET VOLUME 9.8 fl (9.6-12.3); PLATELET COUNT AUTOMATED 141 10*3/uL (130-400); RED BLOOD COUNT 3.07 10*6/uL (4.50-5.90); RED CELL DISTRI WIDTH 12.9 % (0-14.5); WHITE BLOOD COUNT 14.6 10*3/uL (4.8-10.8)
[2019-11-06 09:43] LABS: BURR CELLS MODERATE; PLATELET SUFFICIENCY NORMAL (NORMAL); TOTAL CELLS COUNTED 100 #CELLS; TOXIC GRANULATION SLIGHT
[2019-11-06 10:30] LABS: BUN 11 mg/dl (7-24); CHLORIDE 103 mmol/L (98-107); CREATININE 0.85 mg/dL (0.70-1.30); SODIUM 132 mmol/L (136-145)
[2019-11-06 10:31] LABS: POTASSIUM 4.6 mmol/L (3.5-5.1)
[2019-11-07] VITALS (32 sets, daily range): BP systolic 110–166; BP diastolic 40–87
[2019-11-07 06:20] LABS: BUN 11 mg/dl (7-24); CHLORIDE 106 mmol/L (98-107); CREATININE 0.81 mg/dL (0.70-1.30); PHOSPHOROUS 1.8 mg/dL (2.5-4.9); POTASSIUM 4.4 mmol/L (3.5-5.1); SODIUM 136 mmol/L (136-145)
[2019-11-07 06:21] LABS: BASO % 0.1 % (0.0-1.0); EOS # 0.1 10*3/uL (0.0-0.4); EOS % 1.4 % (1.0-4.0); HEMATOCRIT 27.6 % (42.0-52.0); HEMOGLOBIN 8.8 g/dl (14.0-18.0); LYMPH # 0.4 10*3/uL (1.3-4.4); MEAN CELL VOLUME 100.4 fl (80.0-94.0); MEAN CORPUSCULAR HGB CONC 31.9 g/dl (33.0-37.0); MONO # 0.5 10*3/uL (0.1-1.0); MONO % 7.2 % (3.0-9.0); NEUT # 6.1 10*3/uL (2.3-7.9); NEUT % 84.6 % (47.0-73.0); PLATELET COUNT AUTOMATED 139 10*3/uL (130-400); RED BLOOD COUNT 2.75 10*6/uL (4.50-5.90); RED CELL DISTRI WIDTH 13.1 % (0-14.5); WHITE BLOOD COUNT 7.2 10*3/uL (4.8-10.8)
[2019-11-07 08:34] LABS: ABG BASE EXCESS -0.7 mmol/L (-2.0-2.0); ARTERIAL BLOOD GAS PH 7.364 (7.35-7.45)
[2019-11-07] MEDS ORDERED: ALDACTONE25 MG PO (08:34)
[2019-11-07] MEDS ORDERED: FUROSEMIDE20 M1 PO (08:35)
[2019-11-07 12:17] LABS: ABG BASE EXCESS -2.5 mmol/L (-2.0-2.0); ARTERIAL BLOOD GAS PH 7.308 (7.35-7.45)
[2019-11-08] VITALS (13 sets, daily range): BP systolic 110–176; BP diastolic 56–88
[2019-11-08 06:02] LABS: BASO % 0.4 % (0.0-1.0); EOS # 0.2 10*3/uL (0.0-0.4); EOS % 2.7 % (1.0-4.0); HEMATOCRIT 28.3 % (42.0-52.0); HEMOGLOBIN 8.9 g/dl (14.0-18.0); LYMPH # 0.5 10*3/uL (1.3-4.4); LYMPH % 6.6 % (27.0-41.0); MEAN CORPUSCULAR HGB 31.4 pg (27.0-31.0); MEAN CORPUSCULAR HGB CONC 31.4 g/dl (33.0-37.0); MEAN PLATELET VOLUME 10.1 fl (9.6-12.3); MONO # 0.8 10*3/uL (0.1-1.0); MONO % 10.9 % (3.0-9.0); NEUT # 5.5 10*3/uL (2.3-7.9); NEUT % 78.1 % (47.0-73.0); PLATELET COUNT AUTOMATED 117 10*3/uL (130-400); RED BLOOD COUNT 2.83 10*6/uL (4.50-5.90); RED CELL DISTRI WIDTH 12.9 % (0-14.5)
[2019-11-08 06:27] LABS: ALBUMIN 2.1 gm/dl (3.1-4.5); ALKALINE PHOSPHATASE 118 U/L (45-117); BUN 12 mg/dl (7-24); CHLORIDE 109 mmol/L (98-107); CREATININE 0.77 mg/dL (0.70-1.30); PHOSPHOROUS 4.7 mg/dL (2.5-4.9); POTASSIUM 4.1 mmol/L (3.5-5.1); SGOT/AST 37 IU/L (3-35); SGPT/ALT 38 U/L (12-78); SODIUM 139 mmol/L (136-145); TOTAL PROTEIN 5.5 gm/dL (6.4-8.2)
[2019-11-08 09:19] LABS: ABG BASE EXCESS -2.4 mmol/L (-2.0-2.0); ARTERIAL BLOOD GAS PH 7.378 (7.35-7.45)
[2019-11-08 18:34] LABS: ABG BASE EXCESS -0.6 mmol/L (-2.0-2.0); ARTERIAL BLOOD GAS PH 7.351 (7.35-7.45)
[2019-11-09] VITALS (12 sets, daily range): BP systolic 90–138; BP diastolic 40–74
[2019-11-09 06:21] LABS: BASO % 0.6 % (0.0-1.0); EOS # 0.3 10*3/uL (0.0-0.4); EOS % 3.8 % (1.0-4.0); HEMATOCRIT 27.7 % (42.0-52.0); HEMOGLOBIN 8.7 g/dl (14.0-18.0); LYMPH # 0.5 10*3/uL (1.3-4.4); LYMPH % 6.5 % (27.0-41.0); MEAN CELL VOLUME 102.2 fl (80.0-94.0); MEAN CORPUSCULAR HGB 32.1 pg (27.0-31.0); MEAN CORPUSCULAR HGB CONC 31.4 g/dl (33.0-37.0); MEAN PLATELET VOLUME 10.2 fl (9.6-12.3); MONO # 1.1 10*3/uL (0.1-1.0); MONO % 15.7 % (3.0-9.0); NEUT % 71.5 % (47.0-73.0); PLATELET COUNT AUTOMATED 125 10*3/uL (130-400); RED BLOOD COUNT 2.71 10*6/uL (4.50-5.90); RED CELL DISTRI WIDTH 13.2 % (0-14.5); WHITE BLOOD COUNT 6.9 10*3/uL (4.8-10.8)
[2019-11-09 06:32] LABS: BUN 16 mg/dl (7-24); CHLORIDE 107 mmol/L (98-107); PHOSPHOROUS 5.1 mg/dL (2.5-4.9); POTASSIUM 4.2 mmol/L (3.5-5.1); SODIUM 140 mmol/L (136-145)
[2019-11-09 06:34] LABS: ABG BASE EXCESS -0.3 mmol/L (-2.0-2.0); ARTERIAL BLOOD GAS PH 7.345 (7.35-7.45)
[2019-11-10] VITALS (48 sets, daily range): BP systolic 58–154; BP diastolic 42–73
[2019-11-10 04:20] LABS: BASO # 0.1 10*3/uL (0.0-0.1); BASO % 0.7 % (0.0-1.0); EOS # 0.4 10*3/uL (0.0-0.4); EOS % 6.3 % (1.0-4.0); HEMATOCRIT 28.9 % (42.0-52.0); HEMOGLOBIN 8.9 g/dl (14.0-18.0); LYMPH # 0.4 10*3/uL (1.3-4.4); LYMPH % 5.9 % (27.0-41.0); MEAN CORPUSCULAR HGB CONC 30.8 g/dl (33.0-37.0); MEAN PLATELET VOLUME 11.1 fl (9.6-12.3); MONO % 14.2 % (3.0-9.0); NEUT # 4.7 10*3/uL (2.3-7.9); PLATELET COUNT AUTOMATED 117 10*3/uL (130-400); RED BLOOD COUNT 2.78 10*6/uL (4.50-5.90); RED CELL DISTRI WIDTH 13.2 % (0-14.5); WHITE BLOOD COUNT 6.8 10*3/uL (4.8-10.8)
[2019-11-10 04:37] LABS: ALBUMIN 1.9 gm/dl (3.1-4.5); ALKALINE PHOSPHATASE 121 U/L (45-117); BUN 16 mg/dl (7-24); CHLORIDE 107 mmol/L (98-107); CREATININE 0.88 mg/dL (0.70-1.30); PHOSPHOROUS 3.6 mg/dL (2.5-4.9); POTASSIUM 4.1 mmol/L (3.5-5.1); SGOT/AST 52 IU/L (3-35); SGPT/ALT 43 U/L (12-78); SODIUM 142 mmol/L (136-145); TOTAL PROTEIN 6.1 gm/dL (6.4-8.2)
[2019-11-10 06:38] LABS: ABG BASE EXCESS 3.9 mmol/L (-2.0-2.0); ARTERIAL BLOOD GAS PH 7.392 (7.35-7.45)
[2019-11-10 15:03] LABS: ABG BASE EXCESS 2.7 mmol/L (-2.0-2.0); ARTERIAL BLOOD GAS PH 7.327 (7.35-7.45)
[2019-11-11] VITALS (96 sets, daily range): BP systolic 64–166; BP diastolic 13–76
[2019-11-11 06:19] LABS: HEMATOCRIT 28.9 % (42.0-52.0); HEMOGLOBIN 8.9 g/dl (14.0-18.0); MEAN CELL VOLUME 105.1 fl (80.0-94.0); MEAN CORPUSCULAR HGB 32.4 pg (27.0-31.0); MEAN CORPUSCULAR HGB CONC 30.8 g/dl (33.0-37.0); MEAN PLATELET VOLUME 11.1 fl (9.6-12.3); PLATELET COUNT AUTOMATED 150 10*3/uL (130-400); RED BLOOD COUNT 2.75 10*6/uL (4.50-5.90); RED CELL DISTRI WIDTH 13.2 % (0-14.5); WHITE BLOOD COUNT 8.5 10*3/uL (4.8-10.8)
[2019-11-11 06:50] LABS: ALBUMIN 1.8 gm/dl (3.1-4.5); ALKALINE PHOSPHATASE 120 U/L (45-117); BUN 18 mg/dl (7-24); CHLORIDE 102 mmol/L (98-107); CREATININE 0.82 mg/dL (0.70-1.30); PHOSPHOROUS 4.2 mg/dL (2.5-4.9); SGOT/AST 68 IU/L (3-35); SGPT/ALT 49 U/L (12-78); SODIUM 137 mmol/L (136-145)
[2019-11-11 07:54] LABS: ABG BASE EXCESS 3.6 mmol/L (-2.0-2.0); ARTERIAL BLOOD GAS PH 7.315 (7.35-7.45)
[2019-11-11 08:09] LABS: BASOPHILS 1 % (0-1); PLATELET SUFFICIENCY NORMAL (NORMAL); POLYCHROMASIA SLIGHT; ROULEAUX MODERATE; TOTAL CELLS COUNTED 100 #CELLS
[2019-11-11 15:53] LABS: ABG BASE EXCESS 5.2 mmol/L (-2.0-2.0); ARTERIAL BLOOD GAS PH 7.329 (7.35-7.45)
[2019-11-12] VITALS (69 sets, daily range): BP systolic 81–149; BP diastolic 52–71
[2019-11-12 06:04] LABS: ALBUMIN 1.8 gm/dl (3.1-4.5); ALKALINE PHOSPHATASE 127 U/L (45-117); BUN 18 mg/dl (7-24); CHLORIDE 98 mmol/L (98-107); CREATININE 0.83 mg/dL (0.70-1.30); PHOSPHOROUS 3.8 mg/dL (2.5-4.9); SGOT/AST 78 IU/L (3-35); SGPT/ALT 57 U/L (12-78); SODIUM 134 mmol/L (136-145)
[2019-11-12 06:31] LABS: HEMATOCRIT 28.3 % (42.0-52.0); HEMOGLOBIN 8.7 g/dl (14.0-18.0); MEAN CORPUSCULAR HGB 31.6 pg (27.0-31.0); MEAN CORPUSCULAR HGB CONC 30.7 g/dl (33.0-37.0); MEAN PLATELET VOLUME 11.5 fl (9.6-12.3); NUCLEATED RED BLOOD CELL 0.2 % (0.0-0.0); PLATELET COUNT AUTOMATED 161 10*3/uL (130-400); RED BLOOD COUNT 2.75 10*6/uL (4.50-5.90); RED CELL DISTRI WIDTH 13.3 % (0-14.5); WHITE BLOOD COUNT 8.8 10*3/uL (4.8-10.8)
[2019-11-12 06:41] LABS: MEAN CELL VOLUME 102.9 fl (80.0-94.0)
[2019-11-12 06:46] LABS: TOTAL CELLS COUNTED 100 #CELLS
[2019-11-12 06:47] LABS: PLATELET SUFFICIENCY NORMAL (NORMAL); POLYCHROMASIA SLIGHT; ROULEAUX SLIGHT
[2019-11-12 06:48] LABS: TOXIC GRANULATION SLIGHT
[2019-11-12 08:37] LABS: ABG BASE EXCESS 5.8 mmol/L (-2.0-2.0); ARTERIAL BLOOD GAS PH 7.417 (7.35-7.45)
[2019-11-12 11:23] LABS: ABG BASE EXCESS 6.4 mmol/L (-2.0-2.0); ARTERIAL BLOOD GAS PH 7.437 (7.35-7.45)
[2019-11-13] VITALS: BP 146/64
[2019-11-13 04:00] VITALS: BP 115/59
[2019-11-13 05:38] LABS: ALBUMIN 1.7 gm/dl (3.1-4.5); ALKALINE PHOSPHATASE 132 U/L (45-117); BUN 22 mg/dl (7-24); CHLORIDE 99 mmol/L (98-107); CREATININE 0.84 mg/dL (0.70-1.30); PHOSPHOROUS 3.6 mg/dL (2.5-4.9); SGOT/AST 63 IU/L (3-35); SGPT/ALT 54 U/L (12-78); SODIUM 137 mmol/L (136-145); TOTAL PROTEIN 6.2 gm/dL (6.4-8.2)
[2019-11-13 06:02] LABS: ABG BASE EXCESS 6.5 mmol/L (-2.0-2.0); ARTERIAL BLOOD GAS PH 7.463 (7.35-7.45)
[2019-11-13 06:14] LABS: BASO % 0.5 % (0.0-1.0); EOS # 0.4 10*3/uL (0.0-0.4); EOS % 5.8 % (1.0-4.0); HEMATOCRIT 25.7 % (42.0-52.0); HEMOGLOBIN 7.9 g/dl (14.0-18.0); LYMPH # 0.4 10*3/uL (1.3-4.4); LYMPH % 6.1 % (27.0-41.0); MEAN CELL VOLUME 102.4 fl (80.0-94.0); MEAN CORPUSCULAR HGB 31.5 pg (27.0-31.0); MEAN CORPUSCULAR HGB CONC 30.7 g/dl (33.0-37.0); MEAN PLATELET VOLUME 11.6 fl (9.6-12.3); MONO # 0.7 10*3/uL (0.1-1.0); MONO % 10.2 % (3.0-9.0); NEUT # 4.8 10*3/uL (2.3-7.9); NEUT % 75.4 % (47.0-73.0); PLATELET COUNT AUTOMATED 137 10*3/uL (130-400); RED BLOOD COUNT 2.51 10*6/uL (4.50-5.90); RED CELL DISTRI WIDTH 13.2 % (0-14.5); WHITE BLOOD COUNT 6.4 10*3/uL (4.8-10.8)
[2019-11-13 08:00] VITALS: BP 103/58
[2019-11-13 12:00] VITALS: BP 122/59
[2019-11-13 16:00] VITALS: BP 142/64
[2019-11-13 20:00] VITALS: BP 124/60
[2019-11-14] VITALS: BP 136/60
[2019-11-14 04:00] VITALS: BP 124/58
[2019-11-14 05:40] LABS: ABG BASE EXCESS 10.2 mmol/L (-2.0-2.0); ARTERIAL BLOOD GAS PH 7.418 (7.35-7.45)
[2019-11-14 05:53] LABS: ALBUMIN 2.1 gm/dl (3.1-4.5); ALKALINE PHOSPHATASE 141 U/L (45-117); BUN 24 mg/dl (7-24); CHLORIDE 101 mmol/L (98-107); CREATININE 0.81 mg/dL (0.70-1.30); PHOSPHOROUS 3.9 mg/dL (2.5-4.9); POTASSIUM 3.7 mmol/L (3.5-5.1); SGOT/AST 48 IU/L (3-35); SGPT/ALT 51 U/L (12-78); SODIUM 140 mmol/L (136-145); TOTAL PROTEIN 6.1 gm/dL (6.4-8.2)
[2019-11-14 05:58] LABS: BASO % 0.4 % (0.0-1.0); EOS # 0.4 10*3/uL (0.0-0.4); EOS % 6.4 % (1.0-4.0); HEMATOCRIT 24.9 % (42.0-52.0); HEMOGLOBIN 7.6 g/dl (14.0-18.0); LYMPH # 0.4 10*3/uL (1.3-4.4); MEAN CELL VOLUME 102.9 fl (80.0-94.0); MEAN CORPUSCULAR HGB 31.4 pg (27.0-31.0); MEAN CORPUSCULAR HGB CONC 30.5 g/dl (33.0-37.0); MEAN PLATELET VOLUME 11.4 fl (9.6-12.3); MONO # 0.6 10*3/uL (0.1-1.0); MONO % 8.9 % (3.0-9.0); NEUT # 5.3 10*3/uL (2.3-7.9); NEUT % 77.3 % (47.0-73.0); PLATELET COUNT AUTOMATED 143 10*3/uL (130-400); RED BLOOD COUNT 2.42 10*6/uL (4.50-5.90); RED CELL DISTRI WIDTH 13.5 % (0-14.5); WHITE BLOOD COUNT 6.8 10*3/uL (4.8-10.8)
[2019-11-14 08:00] VITALS: BP 144/66
[2019-11-14 12:00] VITALS: BP 151/69
[2019-11-14 16:00] VITALS: BP 135/61
[2019-11-14 20:00] VITALS: BP 152/68
[2019-11-15] VITALS (11 sets, daily range): BP systolic 20–146; BP diastolic 41–68
[2019-11-15 04:56] LABS: BASO % 0.5 % (0.0-1.0); EOS # 0.5 10*3/uL (0.0-0.4); EOS % 6.7 % (1.0-4.0); HEMATOCRIT 24.2 % (42.0-52.0); HEMOGLOBIN 7.3 g/dl (14.0-18.0); LYMPH # 0.5 10*3/uL (1.3-4.4); LYMPH % 6.1 % (27.0-41.0); MEAN CELL VOLUME 103.9 fl (80.0-94.0); MEAN CORPUSCULAR HGB 31.3 pg (27.0-31.0); MEAN CORPUSCULAR HGB CONC 30.2 g/dl (33.0-37.0); MEAN PLATELET VOLUME 11.7 fl (9.6-12.3); MONO # 0.7 10*3/uL (0.1-1.0); MONO % 9.2 % (3.0-9.0); NEUT # 5.8 10*3/uL (2.3-7.9); NEUT % 76.7 % (47.0-73.0); PLATELET COUNT AUTOMATED 151 10*3/uL (130-400); RED BLOOD COUNT 2.33 10*6/uL (4.50-5.90); RED CELL DISTRI WIDTH 13.8 % (0-14.5); WHITE BLOOD COUNT 7.6 10*3/uL (4.8-10.8)
[2019-11-15 05:12] LABS: ALBUMIN 2.7 gm/dl (3.1-4.5); ALKALINE PHOSPHATASE 159 U/L (45-117); BUN 27 mg/dl (7-24); CHLORIDE 102 mmol/L (98-107); CREATININE 0.87 mg/dL (0.70-1.30); PHOSPHOROUS 3.8 mg/dL (2.5-4.9); POTASSIUM 3.7 mmol/L (3.5-5.1); SGOT/AST 45 IU/L (3-35); SGPT/ALT 54 U/L (12-78); SODIUM 142 mmol/L (136-145); TOTAL PROTEIN 6.5 gm/dL (6.4-8.2)
[2019-11-15 07:05] LABS: ARTERIAL BLOOD GAS PH 7.391 (7.35-7.45)
== END 2019-11-15 19:19 | disposition short-term general hospital (02) | DRG 870 ==
LOC: ED 19:24 → 5E 23:40 → EDHOLD 23:40 → 5E 11-05 00:10 → ICCU 11-14 14:16
PROVIDERS: Emergency Medicine; Internal Medicine; Internal Medicine Critical Care Medicine; Internal Medicine Nephrology; Student in an Organized Health Care Education/Training Program; ADMIT Family Medicine
PROC: 05JY3ZZ Inspection of Upper Vein, Percutaneous Approach (ICD-10-PCS; principal; 2019-11-04)
PROC: 5A09357 Assistance with Respiratory Ventilation, Less than 24 Consecutive Hours, Continuous Positive Airway Pressure (ICD-10-PCS; principal; 2019-11-04)
PROC: 0BH17EZ Insertion of Endotracheal Airway into Trachea, Via Natural or Artificial Opening (ICD-10-PCS; principal; 2019-11-04)
PROC: 5A1955Z Respiratory Ventilation, Greater than 96 Consecutive Hours (ICD-10-PCS; principal; 2019-11-04)
PROC: 06JY3ZZ Inspection of Lower Vein, Percutaneous Approach (ICD-10-PCS; principal; 2019-11-04)
PROC: B548ZZA Ultrasonography of Superior Vena Cava, Guidance (ICD-10-PCS; 2019-11-05)
PROC: 02HV33Z Insertion of Infusion Device into Superior Vena Cava, Percutaneous Approach (ICD-10-PCS; 2019-11-05)
PROC: 03HY32Z Insertion of Monitoring Device into Upper Artery, Percutaneous Approach (ICD-10-PCS; 2019-11-05)
PROC: 4A133J1 Monitoring of Arterial Pulse, Peripheral, Percutaneous Approach (ICD-10-PCS; 2019-11-05)
PROC: 4A133B1 Monitoring of Arterial Pressure, Peripheral, Percutaneous Approach (ICD-10-PCS; 2019-11-05)
DX: A41.01 Sepsis due to Methicillin susceptible Staphylococcus aureus (principal); N17.0 Acute kidney failure with tubular necrosis; J96.22 Acute and chronic respiratory failure with hypercapnia; J96.21 Acute and chronic respiratory failure with hypoxia; J15.5 Pneumonia due to Escherichia coli; E43 Unspecified severe protein-calorie malnutrition; I50.43 Acute on chronic combined systolic (congestive) and diastolic (congestive) heart failure; E87.1 Hypo-osmolality and hyponatremia; E87.4 Mixed disorder of acid-base balance; I13.0 Hypertensive heart and chronic kidney disease with heart failure and stage 1 through stage 4 chronic kidney disease, or unspecified chronic kidney disease; G93.40 Encephalopathy, unspecified; R65.20 Severe sepsis without septic shock; E87.5 Hyperkalemia; E87.8 Other disorders of electrolyte and fluid balance, not elsewhere classified; R74.8 Abnormal levels of other serum enzymes; F17.210 Nicotine dependence, cigarettes, uncomplicated; F10.10 Alcohol abuse, uncomplicated; I73.9 Peripheral vascular disease, unspecified; I25.10 Atherosclerotic heart disease of native coronary artery without angina pectoris; F41.1 Generalized anxiety disorder; J43.9 Emphysema, unspecified; K74.60 Unspecified cirrhosis of liver; D53.9 Nutritional anemia, unspecified; R73.03 Prediabetes; R91.1 Solitary pulmonary nodule; E83.39 Other disorders of phosphorus metabolism; E78.00 Pure hypercholesterolemia, unspecified; R73.9 Hyperglycemia, unspecified; N18.3 Chronic kidney disease, stage 3 (moderate); I25.2 Old myocardial infarction; Z82.5 Family history of asthma and other chronic lower respiratory diseases; Z82.3 Family history of stroke; Z82.49 Family history of ischemic heart disease and other diseases of the circulatory system; Z79.899 Other long term (current) drug therapy; Z79.02 Long term (current) use of antithrombotics/antiplatelets; Z68.21 Body mass index [BMI] 21.0-21.9, adult